=== PATIENT | male | born 1985 | race American Indian/Alaskan Native ===

== ENCOUNTER 2017-03-21 22:21 | Emergency (ER) | payer OTHER ==
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
[2017-03-22 06:06] VITALS: BP 127/83
== END 2017-03-22 06:23 | disposition home or self-care (01) ==
LOC: ED 22:21
DX: S13.4XXA Sprain of ligaments of cervical spine, initial encounter (principal); F17.200 Nicotine dependence, unspecified, uncomplicated; V89.0XXA Person injured in unspecified motor-vehicle accident, nontraffic, initial encounter; Y99.0 Civilian activity done for income or pay; Y93.89 Activity, other specified; Y92.488 Other paved roadways as the place of occurrence of the external cause
CPT/HCPCS: 70450; 72125